=== PATIENT | male | born 1945 | race Caucasian/White ===

== ENCOUNTER 2022-10-28 02:37 | Emergency (ER) | payer MEDICARE ==
[~2022-10-28] VITALS: Ht 182.9 cm; Wt 100.0 kg
[~2022-10-28 02:37] MED LIST: ASPIRIN325 MG PO; B-12100 MCG PO; LEXAPRO20 MG PO; METOPROL TAR25 MG PO; NEXIUM20 MG PO; ZOLPIDEM10 MG PO; [UNRECOGNIZED DRUG - OTHER] PO
[2022-10-28] MEDS ORDERED: DIPHENHYDRAM50 M2 PO (03:10)
[2022-10-28] MEDS ORDERED: PEPCID20 MG PO (03:10)
[2022-10-28] MEDS ORDERED: AMOXICILLIN500 MG PO (03:10)
[2022-10-28 03:18] VITALS: BP 170/79
== END 2022-10-28 03:25 | disposition home or self-care (01) ==
LOC: ED 02:37
DX: T63.481A Toxic effect of venom of other arthropod, accidental (unintentional), initial encounter (principal); L23.89 Allergic contact dermatitis due to other agents; L03.116 Cellulitis of left lower limb; L03.115 Cellulitis of right lower limb; I48.91 Unspecified atrial fibrillation